=== PATIENT | male | born 1980 | race Hispanic/Latino ===

== ENCOUNTER 2017-12-24 16:16 | Outpatient (CLI) | payer OTHER ==
[~2017-12-24 16:16] MED LIST: ADIPEX PO; ADIPEX-P37.5 M1 OR; FLUT0.05 NAS; HYDR25TA60 PO
== END 2017-12-24 18:21 | disposition home or self-care (01) ==
LOC: CT 16:16
DX: S60.552A Superficial foreign body of left hand, initial encounter (principal)
CPT/HCPCS: Q9963

== ENCOUNTER 2019-06-02 08:59 | Outpatient (CLI) | payer OTHER ==
[2019-06-02 09:24] LABS: PLATELET COUNT 266 K/uL (142-355)
[2019-06-02 09:53] LABS: POTASSIUM 4.2 mmol/L (3.6-5.2)
== END 2019-06-02 20:57 | disposition home or self-care (01) ==
LOC: LABW 08:59
PROVIDERS: Internal Medicine
DX: Z00.00 Encounter for general adult medical examination without abnormal findings (principal); E66.9 Obesity, unspecified
CPT/HCPCS: 36415; 80053; 80061; 81000; 82043; 82570; 82607; 83036; 84155; 84439; 84443; 85027; 85651; 86038

== ENCOUNTER 2019-06-03 15:37 | Outpatient (CLI) | payer OTHER | END 2019-06-03 19:55 | disposition home or self-care (01) | LOC: LAB 15:37 | DX: R53.83 Other fatigue (principal) | CPT/HCPCS: 84402; 84403 ==

== ENCOUNTER 2020-12-20 09:54 | Outpatient (CLI) | payer OTHER | END 2020-12-20 19:50 | disposition home or self-care (01) | LOC: INF 09:54 | PROVIDERS: ATTEND Internal Medicine | DX: Z23 Encounter for immunization (principal) | CPT/HCPCS: 96372 ==

== ENCOUNTER 2021-01-17 08:07 | Outpatient (CLI) | payer OTHER | END 2021-01-17 19:50 | disposition home or self-care (01) | LOC: INF 08:07 | PROVIDERS: ATTEND Internal Medicine | DX: Z23 Encounter for immunization (principal) | CPT/HCPCS: 96372 ==

== ENCOUNTER 2021-11-04 00:51 | Emergency (ER) | payer OTHER ==
[~2021-11-04] VITALS: Ht 180.3 cm; Wt 108.9 kg
[2021-11-04 01:50] LABS: PLATELET COUNT 272 K/uL (142-355)
[2021-11-04 02:02] LABS: POTASSIUM 3.7 mmol/L (3.6-5.2)
[2021-11-04 02:25] LABS: PARTIAL THROMBOPLASTIN TIME 24.5 SECONDS (24.5-33.6)
[2021-11-04 03:15] VITALS: BP 130/80; TEMP 99
== END 2021-11-04 03:15 | disposition home or self-care (01) ==
LOC: ED 00:51
PROVIDERS: Hospitalist
DX: R10.32 Left lower quadrant pain (principal); N39.0 Urinary tract infection, site not specified; N20.0 Calculus of kidney
CPT/HCPCS: 36415; 80053; 81000; 85027; 85610; 85730; 96360; 96365; 96375; 99284; J0696; J1885; J2405

== ENCOUNTER 2021-11-27 08:56 | Outpatient (CLI) | payer OTHER ==
[2021-11-27 09:17] LABS: PLATELET COUNT 252 K/uL (142-355)
[2021-11-27 09:44] LABS: POTASSIUM 4.3 mmol/L (3.6-5.2)
== END 2021-11-27 18:56 | disposition home or self-care (01) ==
LOC: LABW 08:56
PROVIDERS: ATTEND Internal Medicine
DX: Z00.00 Encounter for general adult medical examination without abnormal findings (principal)
CPT/HCPCS: 36415; 80053; 81000; 82043; 82306; 82570; 82607; 82746; 83036; 83735; 84100; 84155; 84439; 84443; 85027

== ENCOUNTER 2022-07-17 14:14 | Outpatient (CLI) | payer OTHER ==
[2022-07-17 14:39] LABS: PLATELET COUNT 282 K/uL (142-355)
[2022-07-17 14:56] LABS: POTASSIUM 3.9 mmol/L (3.6-5.2)
== END 2022-07-17 21:09 | disposition home or self-care (01) ==
LOC: LABW 14:14
PROVIDERS: ATTEND Internal Medicine
DX: R53.83 Other fatigue (principal)
CPT/HCPCS: 36415; 80053; 80061; 81002; 82043; 82570; 82607; 82746; 83036; 84156; 84402; 84403; 84439; 84443; 85027; 85652; 86038

== ENCOUNTER 2023-04-18 15:05 | Outpatient (CLI) | payer OTHER | END 2023-04-18 19:24 | disposition home or self-care (01) | LOC: CT 15:05 | PROVIDERS: ATTEND Nurse Practitioner Family | DX: G43.709 Chronic migraine without aura, not intractable, without status migrainosus (principal); J32.9 Chronic sinusitis, unspecified ==